=== PATIENT | female | born 1945 | race Caucasian/White ===

== ENCOUNTER → 2016-06-06 | Outpatient (CLI) | payer MEDICARE, OTHER ==
[~2016-06-06] MED LIST: OMNIPAQUE 350 MG/ML, 100ML BOTTLE ONE
== END | disposition home or self-care (01) ==
LOC: CFH 11:39
PROVIDERS: ATTEND Family Medicine
DX: K57.30 Diverticulosis of large intestine without perforation or abscess without bleeding (principal); M47.896 Other spondylosis, lumbar region; N95.9 Unspecified menopausal and perimenopausal disorder
CPT/HCPCS: 74177; Q9967

== ENCOUNTER → 2016-06-07 | Outpatient (CLI) | payer MEDICARE, OTHER | END | disposition home or self-care (01) | LOC: CFH 12:46 | PROVIDERS: ATTEND Family Medicine | DX: Z12.31 Encounter for screening mammogram for malignant neoplasm of breast (principal) | CPT/HCPCS: 77063; G0202 ==

== ENCOUNTER 2020-05-29 16:06 | Emergency (ER) | payer MEDICARE, OTHER ==
[~2020-05-29] VITALS: Ht 162.6 cm; Wt 65.9 kg
[2020-05-29] MEDS ORDERED: SODIUM CHLORIDE FLUSH 10ML SYR IVF ONE (16:30)
[2020-05-29 16:42] LABS: BASOPHILS % (AUTO) 1 % (0-1); EOSINOPHILS % (AUTO) 1 % (1-7); LYMPHOCYTES % (AUTO) 32 % (22-44); MD NO; MEAN CORPUSCULAR HEMOGLOBIN 29.9 pg (27.0-34.8); MEAN CORPUSCULAR HGB CONC 33.7 g/dL (32.4-35.8); MEAN PLATELET VOLUME 7.2 fL (7.4-10.4); MONOCYTES % (AUTO) 6 % (2-9); NEUTROPHILS % (AUTO) 60 % (42-75); PLATELET COUNT 300 x10^3/uL (130-400); RED BLOOD COUNT 4.66 x10^6/uL (3.82-5.3); RED CELL DISTRIBUTION WIDTH 13.6 % (9.6-15.2)
[2020-05-29] MEDS ORDERED: ASPI-963 PO (16:42)
[2020-05-29] MEDS ORDERED: ROSU20TA2 PO (16:42)
[2020-05-29] MEDS ORDERED: SITA1TBM7 PO (16:42)
[2020-05-29] MEDS ORDERED: ASPI81TA45 PO (16:42)
[2020-05-29] MEDS ORDERED: MULTIVITAMIN (16:42)
[2020-05-29] MEDS ORDERED: LEVO88TA2 PO (16:42)
[2020-05-29] MEDS ORDERED: CRAN1CAP2 PO (16:42)
[2020-05-29] MEDS ORDERED: CHOL10003 PO (16:42)
[2020-05-29] MEDS ORDERED: LIOT5TAB11 PO (16:42)
[2020-05-29 16:54] LABS: ALANINE AMINOTRANSFERASE 22 U/L (12-78); ALBUMIN 3.5 g/dL (3.4-5.0); ANION GAP 5 mmol/L (5-15); CALCIUM 9.2 mg/dL (8.5-10.1); CHLORIDE 106 mmol/L (98-107); CREATININE 0.79 mg/dL (0.55-1.02)
[2020-05-29 16:58] LABS: ALKALINE PHOSPHATASE 65 U/L (45-117); BILIRUBIN,TOTAL 0.4 mg/dL (0.2-1.0); TROPONIN I < 0.015 ng/mL (0.000-0.045)
--- NOTE | 2020-05-29 17:15 | NUR ---
CT COMPLETED. SON AT BEDSIDE. WILL CONTINUE TO MONITOR
--- NOTE | 2020-05-29 17:30 | NUR ---
AMBULATED TO BATHROOM WITHOUT ASSITANCE, STEADY GAIT. PT STATES SHE IS NOT FEELING DIZZY AT THIS TIME.
[2020-05-29 17:43] LABS: MICROSCOPIC NOT IND
--- NOTE | 2020-05-29 18:53 | NUR ---
AWAITING RE-EVAL, NO DISTRESS
--- NOTE | 2020-05-29 19:03 | NUR ---
1ST CONTACT C PT. RESTING ON CART IN NAD. AT , DISCUSSING PLAN TO DC HOME AFTER MEDS.
[2020-05-29] MEDS ORDERED: MECLIZINE CHEWABLE 25 MG TAB ONE (19:05)
[2020-05-29 19:07] VITALS: BP 131/50
[2020-05-29] MEDS ORDERED: MECLIZINE CHEWABLE 25 MG TAB PO ONE (19:30)
== END 2020-05-29 19:30 | disposition home or self-care (01) ==
LOC: ED 19:05
DX: H81.10 Benign paroxysmal vertigo, unspecified ear (principal); R11.2 Nausea with vomiting, unspecified; F17.200 Nicotine dependence, unspecified, uncomplicated
CPT/HCPCS: 36415; 70450; 71045; 80053; 81003; 84484; 85025; 93005; 99285